=== PATIENT | female | born 1975 | race Caucasian/White ===

== ENCOUNTER 2018-07-29 09:53 | Emergency (ER) | payer BC ==
[2018-07-29] MEDS ORDERED: Sodium Chloride 0.9% 10 ML Syringe FLUSH PRN (10:10)
[2018-07-29] MEDS ORDERED: Aspirin 81 MG Tab.EC PO ONE (10:10)
[2018-07-29] MEDS ORDERED: Nitroglycerin 2% Oint 1 GM UD Packet TOP ONE (10:10)
[2018-07-29] MEDS ORDERED: Aspirin 81 MG Tab.Chew PO ONE ×2 (10:11)
[2018-07-29] MEDS ORDERED: Aspirin 81 MG Tab.Chew PO STA (10:12)
--- NOTE | 2018-07-29 10:14 | EDM.PDOC ---
ED HPI GENERAL MEDICAL PROBLEM - General Stated Complaint: CHEST PAIN Time Seen by Provider: 07/29/18 09:53 Source of Information: Reports: Patient, Family History Limitations: Reports: No Limitations - History of Present Illness INITIAL COMMENTS - FREE TEXT/NARRATIVE: 43 y.o.w.f came to the ed due to left upper chest pain with movement to the right side. Minimal pain at rest. No trauma, no diaphoresis, no sob, no N/V/D no H/O CAD. Pt quit tobacco use 7 months ago. No other acute medical issue. BP 124/58 RR 21 Pulse ox 100% on RA Pulse 71 Temp 36.6 Onset Date: 07/29/18 Onset Time: 06:00 Duration: Hour(s):, Intermittent Location: Reports: Chest Quality: Reports: Dull, Stabbing Severity: Moderate Improves with: Reports: Rest, Other Worsens with: Reports: Movement Context: Reports: Other Associated Symptoms: Reports: Chest Pain (at rest 3/10 with movement 8/10, no diaphorsis) Left chest Pain Score (Numeric/FACES): 10 - Related Data Allergies Allergy/AdvReac Type Severity Reaction Status Date / Time No Known Allergies Allergy Verified 07/29/18 10:59 Home Meds: Home Meds Acetaminophen/HYDROcodone [Villanova 325-5 MG] 1 tab PO BEDTIME PRN #3 tablet [Rx] Levothyroxine 200 mcg PO ACBREAKFAST 07/29/18 [History] ED ROS GENERAL - Review of Systems Review Of Systems: See Below Constitutional: Reports: No Symptoms HEENT: Reports: No Symptoms Respiratory: Reports: No Symptoms Cardiovascular: Reports: Chest Pain Endocrine: Reports: No Symptoms GI/Abdominal: Reports: Abdominal Pain (epigastric) : Reports: No Symptoms Musculoskeletal: Reports: No Symptoms Skin: Reports: No Symptoms Neurological: Reports: No Symptoms Psychiatric: Reports: No Symptoms Hematologic/Lymphatic: Reports: No Symptoms Immunologic: Reports: No Symptoms ED EXAM, GENERAL - Physical Exam Exam: See Below Exam Limited By: No Limitations General Appearance: Alert, WD/WN, Mild Distress, Moderate Distress, Obese (mobid ) Eye Exam: Bilateral Eye: Normal Inspection Ears: Normal External Exam, Normal Canal Ear Exam: Bilateral Ear: Auricle Normal Nose: Normal Inspection, Normal Mucosa, No Blood Throat/Mouth: Normal Inspection, Normal Lips, Normal Voice, No Airway Compromise Head: Atraumatic, Normocephalic Neck: Normal Inspection, Supple, Non-Tender, Full Range of Motion Respiratory/Chest: No Respiratory Distress, Lungs Clear, Normal Breath Sounds, No Accessory Muscle Use, Chest Non-Tender Cardiovascular: Normal Peripheral Pulses, Regular Rate, Rhythm, No Edema, No Gallop, No JVD, No Murmur, No Rub Peripheral Pulses: 1+: Radial (L) GI/Abdominal: Normal Bowel Sounds, Soft, Non-Tender, No Organomegaly, No Distention, No Abnormal Bruit, No Mass, Pelvis Stable (Female) Exam: Deferred Rectal (Female) Exam: Deferred Back Exam: Normal Inspection Extremities: Normal Inspection, Normal Range of Motion, Non-Tender, No Pedal Edema, Normal Capillary Refill Neurological: Alert, Oriented, CN II-XII Intact, Normal Cognition, Normal Gait, Normal Reflexes, No Motor/Sensory Deficits Psychiatric: Normal Affect, Normal Mood Skin Exam: Warm, Dry, Intact, Normal Color, No Rash Lymphatic: No Adenopathy EKG INTERPRETATION EKG Date: 07/29/18 Time: 09:55 Rhythm: NSR Rate (Beats/Min): 74 Dickinson: Normal P-Wave: Present QRS: Normal ST-T: Normal QT: Normal Comparison: NA - No Prior EKG Course - Vital Signs Text/Narrative:: 43 y.o.w.f came to the ed due to left upper chest pain with movement to the right side. Minimal pain at rest. No trauma, no diaphoresis, no sob, no N/V/D no H/O CAD. Pt quit tobacco use 7 months ago. No other acute medical issue. BP 124/58 RR 21 Pulse ox 100% on RA Pulse 71 Temp 36.6 PE: WNWD W F with pleuritic CP Imaging: CTA chest: Fixed Hiatal Hernia, No PE as per RAD Lanb: DD juliana 0.72 TSH 0.20 BMP nl CBC nl except RBC was 5.22 Troponin was 0.017 UA was ne Imaging: Angio CT: No PE, Fixed hiatal hernia Impression: fixed hiatal hernia Tx: ASA, NTG paste MS Reexam: Improved to 1-06/28 on D/C Plan: D/C with instructions Last Recorded V/S: Last Vital Signs Temp 36.3 C 07/29/18 10:00 Pulse 76 07/29/18 13:00 Resp 18 07/29/18 13:00 BP 112/70 07/29/18 13:00 Pulse Ox 99 07/29/18 13:00 - Orders/Labs/Meds Labs: Laboratory Tests 07/29/18 07/29/18 07/29/18 Range/Units 09:45 10:22 10:22 WBC 6.6 (4.5-12.0) X10-3/uL RBC 5.22 H (3.23-5.20) x10(6)uL Hgb 13.8 (11.5-15.5) g/dL Hct 42.2 (30.0-51.3) % MCV 80.9 (80-96) fL MCH 26.5 L (27.7-33.6) pg MCHC 32.7 (32.2-35.4) g/dL RDW 12.8 (11.5-15.5) % Plt Count 267 (125-369) X10(3)uL MPV 9.0 (7.4-10.4) fL Neut % (Auto) 55.3 (46-82) % Lymph % (Auto) 33.4 (13-37) % Wheeler % (Auto) 7.0 (4-12) % Eos % (Auto) 3 (1.0-5.0) % Baso % (Auto) 1 (0-2) % Neut # (Auto) 3.6 (1.6-8.3) # Lymph # (Auto) 2.2 (0.6-5.0) # Wheeler # (Auto) 0.5 (0.0-1.3) # Eos # (Auto) 0.2 (0.0-0.8) # Baso # (Auto) 0.1 (0.0-0.2) # PT 9.9 (8.7-11.1) INR 1.02 (0.89-1.13) D-Dimer, Quantitative 0.72 H (0.0-0.59) mg/LFEU Sodium (135-145) mmol/L Potassium (3.5-5.3) mmol/L Chloride (100-110) mmol/L Carbon Dioxide (21-32) mmol/L BUN (7-18) mg/dL Creatinine (0.55-1.02) mg/dL Est Cr Clr Drug Dosing Estimated GFR (MDRD) (>60) BUN/Creatinine Ratio (9-20) Glucose (80-116) mg/dL Calcium (8.6-10.2) mg/dL Troponin I (<0.017-0.056) ng/mL TSH, Ultra Sensitive 0.20 L (0.36-3.74) IU/mL Urine Color (YELLOW) Urine Appearance (CLEAR) Urine pH (5.0-6.5) Ur Specific [place] (1.010-1.025) Urine Protein (NEGATIVE) mg/dL Urine Glucose (UA) (NORMAL) mg/dL Urine Ketones (NEGATIVE) mg/dL Urine Occult Blood (NEGATIVE) Urine Nitrite (NEGATIVE) Urine Bilirubin (NEGATIVE) Urine Urobilinogen (NEGATIVE) mg/dL Ur Leukocyte Esterase (NEGATIVE) Urine WBC (0-5) Ur Squamous Epith Cells (NS,R,O) Urine Bacteria (NS) 07/29/18 07/29/18 07/29/18 Range/Units 10:22 10:22 11:28 WBC (4.5-12.0) X10-3/uL RBC (3.23-5.20) x10(6)uL Hgb (11.5-15.5) g/dL Hct (30.0-51.3) % MCV (80-96) fL MCH (27.7-33.6) pg MCHC (32.2-35.4) g/dL RDW (11.5-15.5) % Plt Count (125-369) X10(3)uL MPV (7.4-10.4) fL Neut % (Auto) (46-82) % Lymph % (Auto) (13-37) % Wheeler % (Auto) (4-12) % Eos % (Auto) (1.0-5.0) % Baso % (Auto) (0-2) % Neut # (Auto) (1.6-8.3) # Lymph # (Auto) (0.6-5.0) # Wheeler # (Auto) (0.0-1.3) # Eos # (Auto) (0.0-0.8) # Baso # (Auto) (0.0-0.2) # PT (8.7-11.1) INR (0.89-1.13) D-Dimer, Quantitative (0.0-0.59) mg/LFEU Sodium 140 (135-145) mmol/L Potassium 3.9 (3.5-5.3) mmol/L Chloride 105 (100-110) mmol/L Carbon Dioxide 27 (21-32) mmol/L BUN 14 (7-18) mg/dL Creatinine 0.8 (0.55-1.02) mg/dL Est Cr Clr Drug Dosing TNP Estimated GFR (MDRD) > 60 (>60) BUN/Creatinine Ratio 17.5 (9-20) Glucose 119 H (80-116) mg/dL Calcium 8.6 (8.6-10.2) mg/dL Troponin I < 0.017 L (<0.017-0.056) ng/mL TSH, Ultra Sensitive (0.36-3.74) IU/mL Urine Color Yellow (YELLOW) Urine Appearance Clear (CLEAR) Urine pH 6.0 (5.0-6.5) Ur Specific [place] 1.020 (1.010-1.025) Urine Protein Negative (NEGATIVE) mg/dL Urine Glucose (UA) Normal (NORMAL) mg/dL Urine Ketones Negative (NEGATIVE) mg/dL Urine Occult Blood Negative (NEGATIVE) Urine Nitrite Negative (NEGATIVE) Urine Bilirubin Negative (NEGATIVE) Urine Urobilinogen Normal (NEGATIVE) mg/dL Ur Leukocyte Esterase Negative (NEGATIVE) Urine WBC 0-5 (0-5) Ur Squamous Epith Cells Few H (NS,R,O) Urine Bacteria Few H (NS) Meds: Medications Discontinued Medications Generic Name Dose Route Start Last Admin Trade Name Freq PRN Reason Stop Dose Admin Aspirin 81 mg 07/29/18 10:10 07/29/18 10:20 Halfprin PO 07/29/18 10:11 Not Given ONETIME ONE Aspirin 81 mg 07/29/18 10:11 07/29/18 10:21 Aspirin PO 07/29/18 10:12 81 mg ONETIME ONE Administration Aspirin 162 mg 07/29/18 10:12 07/29/18 10:21 Aspirin PO 07/29/18 10:13 162 mg ONETIME STA Administration Aspirin 81 mg 07/29/18 10:11 07/29/18 10:21 Aspirin PO 07/29/18 10:12 81 mg ONETIME ONE Administration Sodium Chloride 1,000 mls @ 125 mls/hr 07/29/18 10:15 07/29/18 10:25 Normal Saline IV 125 mls/hr ASDIRECTED GAURAV Administration Iopamidol 100 ml 07/29/18 11:20 07/29/18 11:39 Isovue-370 (76%) IV 07/29/18 11:21 88 ml ONETIME ONE Administration Morphine Sulfate 1 mg 07/29/18 11:09 07/29/18 11:22 Morphine IVPUSH 07/29/18 11:10 1 mg ONETIME ONE Administration Nitroglycerin 1 gm 07/29/18 10:10 07/29/18 10:19 Nitro-Bid 2% TOP 07/29/18 10:11 1 gm ONETIME ONE Administration Sodium Chloride 10 ml 07/29/18 10:10 07/29/18 10:15 Saline Flush FLUSH 10 ml ASDIRECTED PRN Administration Keep Vein Open Departure - Departure Time of Disposition: 13:02 Disposition: Home, Self-Care 01 Condition: Good Clinical Impression: Hiatal hernia, Atypical chest pain Prescriptions: Acetaminophen/HYDROcodone [Villanova 325-5 MG] 1 tab PO BEDTIME PRN #3 tablet PRN Reason: for extreme pain Instructions: Hiatal Hernia Referrals: Michelle Felipe, [employer]CHNICIAN [Primary Care Provider] - Forms: ED Department Discharge, ED Return to Work/School Form Additional Instructions: Please f/u with your PMD in order to be referred to a GI specialist, Please elevate head, take Protonix as recommended, please come back if your symptoms gte worse acutely.
[2018-07-29] MEDS ORDERED: Sodium Chloride 0.9% 1,000 ML IV SCH (10:15)
[2018-07-29] MEDS ORDERED: Morphine 2 MG/ML Syringe IVPUSH ONE (11:09)
[2018-07-29] MEDS ORDERED: Iopamidol 755 Mg/ML 100 ML Bottle IV ONE (11:20)
--- NOTE | 2018-07-29 12:02 | CR ---
INDICATION: Chest pain. CHEST: A single AP portable view of the chest was obtained upright on 07/29/18 and compared with 04/17/17, revealing the heart to be normal in size and shape. The mediastinum was unremarkable. Overlying EKG leads are noted. An active infiltrate or effusion was not identified. Evidence of exogenous obesity is noted. IMPRESSION: No acute process. MTDD
--- NOTE | 2018-07-29 13:43 | CT ---
INDICATION: Chest pain with elevated D-dimer - left mid chest pain since 1900 hours last night. COMPUTERIZED TOMOGRAPHY ANGIOGRAPHY OF THE CHEST WITH CONTRAST: Spiral 2.5 mm axial sections were obtained through the chest with sagittal and coronal reconstructions, utilizing 88 mL Isovue 370 at 3 mL/second, 07/29/18 - no comparisons. Total exam DLP = 892.82 mGy-cm. An active infiltrate or effusion was not identified with very minimal scarring at the left lower lobe. No nodular masses were identified. Calcified granuloma of tiny size is noted on axial image #69 in the middle lobe. No evidence of pulmonary emboli could be identified. The heart did not appear enlarged. No pericardial effusion was seen. No mediastinal mass was noted. Mediastinal lymphadenopathy is moderate and nonspecific. There is noted a moderate sized fixed hiatal hernia. The upper abdominal organs were unremarkable, except to note absence of the gallbladder, compatible with cholecystectomy. IMPRESSION: 1. No evidence of pulmonary embolus. 2. No acute process. 3. Moderate sized fixed hiatal hernia. Report was called to Dr. Berman at 1155 hours on 07/29/18. LAURE
== END 2018-07-29 13:28 | disposition home or self-care (01) ==
LOC: FB.ED 09:53
DX: K44.9 Diaphragmatic hernia without obstruction or gangrene (principal); E66.01 Morbid (severe) obesity due to excess calories
CPT/HCPCS: 36415; 71045; 71275; 80048; 81001; 84443; 84484; 85025; 85379; 85610; 93005; 96361; 96374; 99285-25; A9270-GY; J2270; J7030; Q9967

== ENCOUNTER 2018-08-03 07:15 | Day surgery (SDC) | payer BC ==
[2018-08-03] MEDS ORDERED: Propofol 200 MG/20 ML SDV IV ONE (07:16)
[2018-08-03] MEDS ORDERED: Lactated Ringers 1,000 ML IV SCH (07:30)
--- NOTE | 2018-08-03 09:59 | PCM.HPR ---
H & P Addendum review - H & P Addendum Review Date of Original H & P: 07/30/18 Date Reviewed: 08/03/18 Time Reviewed: 09:30 Patient was Examined: No Changes
--- NOTE | 2018-08-03 10:01 | PCM.OPNOTE ---
- General Post-Op/Procedure Note Date of Surgery/Procedure: 08/03/18 Operative Procedure(s): EGD with Bx Findings: Mild Antral Gastritis 3cm HH Pre Op Diagnosis: Epigastric Pain Post-Op Diagnosis: Same Anesthesia Technique: MAC Primary Surgeon: Gasper Matos Pathology: Dist Esoph Antrum Complications: None Condition: Good
--- NOTE | 2018-08-03 15:47 | OR ---
DATE OF OPERATION: 08/03/2018 SURGEON: Gasper Matos MD PREOPERATIVE DIAGNOSIS: Epigastric abdominal pain. POSTOPERATIVE DIAGNOSES: 1. Hiatal hernia. 2. Gastritis of the antrum. PROCEDURE: Esophagogastroduodenoscopy with biopsy. ANESTHESIA: IV sedation. PROCEDURE IN DETAIL: The patient was brought to the procedure room, where she was placed on her left side and IV sedation administered. Oral bite block was placed and the upper endoscope advanced into the esophagus under direct vision without difficulty. Vocal cords were viewed and were normal. The scope was advanced to the third portion of the duodenum. Duodenum and pylorus were normal. Antrum has 2 small superficial erosions without evidence of bleeding. These areas were biopsied. The body and fundus were normal. Retroflexion reveals a regular hiatal hernia. Squamocolumnar junction is at 37 cm from the incisors and diaphragm opening is at 40 cm from the incisors, making this a 3 cm hiatal hernia. No mucosal abnormalities were noted. The esophagus appears normal. I did take two biopsies from the distal esophagus because of her symptoms. Air was removed from the stomach and the scope withdrawn through the remaining esophagus, which appears normal. The patient tolerated the procedure well and returned to recovery in stable condition. The patient will remain on her omeprazole as she is noticing some improvement. I will follow up with her next week for review of pathology report. /[id number] DL/OLGA
== END 2018-08-03 11:07 | disposition home or self-care (01) ==
LOC: FB.SDS 07:15
PROVIDERS: ATTEND Surgery
DX: K29.50 Unspecified chronic gastritis without bleeding (principal); K21.0 Gastro-esophageal reflux disease with esophagitis; K44.9 Diaphragmatic hernia without obstruction or gangrene; F41.9 Anxiety disorder, unspecified; E03.9 Hypothyroidism, unspecified; Z79.899 Other long term (current) drug therapy
CPT/HCPCS: 81025; 88305; 88342; J2704; J7120

== ENCOUNTER 2020-07-23 17:07 | Emergency (ER) | payer BC, MEDICAID ==
[2020-07-23] MEDS ORDERED: traMADol 50 MG Tab PO ONE (17:08)
--- NOTE | 2020-07-23 17:44 | EDM.PDOC ---
ED HPI GENERAL MEDICAL PROBLEM - General Stated Complaint: R SHOULDER Time Seen by Provider: 07/23/20 17:44 Source of Information: Reports: Patient History Limitations: Reports: No Limitations - History of Present Illness INITIAL COMMENTS - FREE TEXT/NARRATIVE: 45-year-old female who reports she has had pain in her right shoulder for about the past 2 years. It is a nagging pain that is worse with any kind of movement. It is something that she has usually been able to take Tylenol or ibuprofen "get through". 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 It was a sharp, aching and throbbing pain. It was in her anterior right shoulder. It was worse with palpation and with movement. She was able to go to work on that day but she found it very difficult to move her right arm. Today she went to work and it was 10/10 level of pain with any kind of movement and she was unable to use her right arm secondary to the pain. She came home after work and took some Tylenol and took a nap and when she awoke the pain was still a 10/10 level of pain and she decided to come to the emergency department for evaluation. She has had no direct trauma to the area. She has been using her right upper extremity frequently with repetitive type actions doing her work for some time. She does report that today she has been feeling numbness and tingling down into her right hand and sometimes it seems to go up into her right lateral neck. She is having no problem gripping or using her right hand and she has no pain in her arm except in the anterior right shoulder. There is no redness or swelling noted in this area. She has had no fever. No chest pain. No shortness of breath. No nausea or vomiting. There are no other associated signs or symptoms. There are no other modifying factors. 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 CUTTER: Reports: Acetaminophen Right Shoulder Pain Score (Numeric/FACES): 9 - Related Data Allergies Allergy/AdvReac Type Severity Reaction Status Date / Time No Known Allergies Allergy Verified 07/23/20 18:10 Home Meds: Home Meds Levothyroxine 200 mcg PO ACBREAKFAST 07/29/18 [History] Ibuprofen 800 mg PO ASDIRECTED 08/03/18 [History] methylPREDNISolone [Medrol Dose Pack] 4 mg PO ASDIRECTED #1 dospk 07/23/20 [Rx] Past Medical History HEENT History: Reports: Impaired Vision Gastrointestinal History: Reports: GERD, Hiatal Hernia 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 History: AB III Musculoskeletal History: Reports: Back Pain, Chronic Psychiatric History: Reports: Anxiety, Depression Endocrine/Metabolic History: Reports: Hypothyroidism, Obesity/BMI 30+ - Infectious Disease History Infectious Disease History: Reports: Chicken Pox - Past Surgical History HEENT Surgical History: Reports: Tonsillectomy GI Surgical History: Reports: Cholecystectomy, EGD Female Surgical History: Reports: D&C Social & Family History - Tobacco Use Tobacco Use Status *Q: Current Every Day Tobacco User - Caffeine Use Caffeine Use: Reports: Coffee - Alcohol Use Alcohol Use History: No - Living Situation & Occupation Occupation: Employed (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[employer]) ED ROS GENERAL - Review of Systems Review Of Systems: See Below Constitutional: Reports: No Symptoms HEENT: Reports: No Symptoms Respiratory: Reports: No Symptoms Cardiovascular: Reports: No Symptoms Endocrine: Reports: No Symptoms GI/Abdominal: Reports: No Symptoms : Reports: No Symptoms Musculoskeletal: Reports: Shoulder Pain (Right anterior shoulder pain.) Skin: Reports: No Symptoms Neurological: Reports: Tingling (Some tingling in the thumb and second and third fingers of her right hand.) Psychiatric: Reports: No Symptoms Hematologic/Lymphatic: Reports: No Symptoms Immunologic: Reports: No Symptoms ED EXAM, GENERAL - Physical Exam Exam: See Below Exam Limited By: No Limitations General Appearance: Alert, WD/WN, Mild Distress (Appears in some pain. She is nontoxic.) Eye Exam: Bilateral Eye: EOMI, Normal Inspection (Sclera are anicteric) Ears: Normal External Exam, Hearing Grossly Normal Ear Exam: Bilateral Ear: Auricle Normal Nose: Normal Inspection, Normal Mucosa, No Blood Throat/Mouth: Normal Inspection, Normal Oropharynx, Normal Voice, No Airway Compromise Head: Atraumatic, Normocephalic Neck: Normal Inspection, Supple, Non-Tender, Full Range of Motion Respiratory/Chest: No Respiratory Distress, Lungs Clear, Normal Breath Sounds, No Accessory Muscle Use, Chest Non-Tender Cardiovascular: Normal Peripheral Pulses, Regular Rate, Rhythm, No Murmur Peripheral Pulses: 2+: Radial (L), Radial (R) GI/Abdominal: Normal Bowel Sounds, Soft, Non-Tender Back Exam: Normal Inspection Extremities: Normal Inspection, No Pedal Edema, Normal Capillary Refill, Limited Range of Motion (Of right shoulder secondary to pain), Other (Tender to palpation over the right anterior shoulder/subacromial bursal area.) Neurological: Alert, Oriented, CN II-XII Intact, Normal Cognition, No Motor/Sensory Deficits Psychiatric: Normal Affect Skin Exam: Warm, Dry, Intact, Normal Color, No Rash Course - Vital Signs Last Recorded V/S: Last Vital Signs Temp 36.2 C 07/23/20 18:10 Pulse 89 07/23/20 18:10 Resp 16 07/23/20 18:10 BP 107/84 07/23/20 18:10 Pulse Ox 100 07/23/20 18:10 - Orders/Labs/Meds Meds: Medications Discontinued Medications Generic Name Dose Route Start Last Admin Trade Name Eufemia PRN Reason Stop Dose Admin Prednisone 60 mg 07/23/20 18:32 07/23/20 18:46 Prednisone 20 Mg Tab PO 07/23/20 18:33 60 mg ONETIME ONE Administration - Re-Assessments/Exams Free Text/Narrative Re-Assessment/Exam: 07/23/20 18:25: Patient with pain in her right anterior shoulder not related to trauma. It appears to be either a bursitis or a rotator cuff injury that is exacerbated by recent overuse. I will have the patient take Tylenol and ibuprofen as needed for pain. We will also apply a sling for comfort and support. I have told her to do range of motion with her right shoulder but did not do any strenuous or repetitive work with her right arm for now. I will also give her a take-home pack of tramadol (#4 tablets) and I will send a prescription for a Medrol Dosepak. She is to follow-up with her primary provider this coming week as she may need orthopedic referral. I will give her a note for work that she will not be able to use her right upper extremity until cleared by her doctor. Departure - Departure Time of Disposition: 18:40 Disposition: Home, Self-Care 01 Condition: Good (Stable.) Clinical Impression: Right anterior shoulder pain, Bursitis of right shoulder - Discharge Information Prescriptions: methylPREDNISolone [Medrol Dose Pack] 4 mg PO ASDIRECTED #1 dospk Instructions: Shoulder Pain, [id number], Pain Medicine Instructions, [id number] Referrals: PCP,None [Primary Care Provider] - Forms: ED Department Discharge, ED Return to Work/School Form Additional Instructions: You appear to have either a bursitis of your right shoulder or possibly a rotator cuff injury to your right shoulder. He will need to follow-up with your primary provider this coming week as you probably will need to be referred to an outcomes specialist. You can take Tylenol and ibuprofen for pain as needed. I am also placing you on a medication called Medrol, a steroid and an anti- inflammatory medication. You should start taking this medication tomorrow. You can also take the tramadol and I gave you moderate to severe pain. Use the sling for comfort and support. You should do gentle range of motion with your right shoulder but avoid any strenuous use with your right arm until cleared by your doctor. I have given you a note for work with these restrictions. Back to the emergency department for, redness in the area of your shoulder, trouble breathing, chest pain or any other concerning signs or symptoms. Sepsis Event Note (ED) - Focused Exam Vital Signs: Vital Signs Temp Pulse Resp BP Pulse Ox 07/23/20 18:10 36.2 C 89 16 107/84 100
[2020-07-23] MEDS: predniSONE 20 MG Tab PO ONE (18:46)
== END 2020-07-23 18:56 | disposition home or self-care (01) ==
LOC: FB.ED 17:07
DX: M75.51 Bursitis of right shoulder (principal); E03.9 Hypothyroidism, unspecified; E66.9 Obesity, unspecified; Z68.29 Body mass index [BMI] 29.0-29.9, adult; Z72.0 Tobacco use
CPT/HCPCS: 99283; A9270; J7512

== ENCOUNTER 2022-03-08 05:25 | Emergency (ER) | payer SELFPAY ==
[2022-03-08] MEDS ORDERED: Sodium Chloride 0.9% 10 ML Syringe FLUSH PRN (06:07)
[2022-03-08] MEDS ORDERED: Aspirin 81 MG Tab.Chew PO ONE (06:07)
[2022-03-08 06:09] LABS: ESTIMATED GFR 91 mL/min (>60)
[2022-03-08] MEDS ORDERED: Nitroglycerin 0.4 MG Tab.SL SL PRN (06:21)
[2022-03-08] MEDS ORDERED: Sodium Chloride 0.9% 1,000 ML IV SCH (06:30)
[2022-03-08] MEDS ORDERED: Morphine 4 MG/ML VIAL IVPUSH ONE (06:41)
[2022-03-08] MEDS ORDERED: Ondansetron 4 MG/2 ML SDV IVPUSH ONE (06:45)
[2022-03-08] MEDS ORDERED: Iopamidol 755 Mg/ML 75 ML Bottle IV ONE (07:03)
[2022-03-08] MEDS ORDERED: Ketorolac 30 MG/ML SDV IVPUSH ONE (07:22)
[2022-03-08] MEDS ORDERED: HYDROmorphone 2 MG/ML SDV IVPUSH ONE (08:05)
[2022-03-08] MEDS ORDERED: Ketorolac 30 MG/ML SDV ONE (09:27)
== END 2022-03-08 09:46 | disposition home or self-care (01) ==
LOC: FB.ED 05:25
DX: R07.81 Pleurodynia (principal); E03.9 Hypothyroidism, unspecified; K21.9 Gastro-esophageal reflux disease without esophagitis; E66.9 Obesity, unspecified; F17.210 Nicotine dependence, cigarettes, uncomplicated; Z68.31 Body mass index [BMI] 31.0-31.9, adult; Z79.84 Long term (current) use of oral hypoglycemic drugs; Z79.899 Other long term (current) drug therapy; Z86.16 Personal history of COVID-19
CPT/HCPCS: 36415; 71045; 71275; 80053; 83735; 84484; 85025; 85379; 93005; 96361; 96374; 96375; 99285-25; A9270-GY; J1170; J1885; J2270; J2405; J3490; J7030; Q9967

== ENCOUNTER 2024-03-28 02:15 | Emergency (ER) | payer SELFPAY ==
[2024-03-28] MEDS ORDERED: Naproxen 250 MG Tab PO ONE (02:16)
[2024-03-28] MEDS: Ketorolac 30 MG/ML SDV IM ONE (02:45)
== END 2024-03-28 03:36 | disposition home or self-care (01) ==
LOC: FB.ED 02:15
DX: M25.512 Pain in left shoulder (principal); E66.9 Obesity, unspecified; E03.9 Hypothyroidism, unspecified; Z79.84 Long term (current) use of oral hypoglycemic drugs; Z79.890 Hormone replacement therapy; Z79.899 Other long term (current) drug therapy; Z86.16 Personal history of COVID-19; Z90.49 Acquired absence of other specified parts of digestive tract; Z68.31 Body mass index [BMI] 31.0-31.9, adult
CPT/HCPCS: 73030-LT; 93010; 96372; 99283; A9270-GY; J1885

== ENCOUNTER 2024-06-18 22:16 | Emergency (ER) | payer MEDICAID ==
[2024-06-18] MEDS: Acetaminophen/oxyCODONE 325-5 MG Tab PO STA (22:44)
[2024-06-18] MEDS: Ketorolac 30 MG/ML SDV IM ONE (22:45)
== END 2024-06-18 23:32 | disposition home or self-care (01) ==
LOC: FB.ED 22:16
DX: M25.512 Pain in left shoulder (principal); E03.9 Hypothyroidism, unspecified; E66.9 Obesity, unspecified; F17.210 Nicotine dependence, cigarettes, uncomplicated; Z68.31 Body mass index [BMI] 31.0-31.9, adult; Z86.16 Personal history of COVID-19; Z90.49 Acquired absence of other specified parts of digestive tract; Z79.84 Long term (current) use of oral hypoglycemic drugs; Z79.890 Hormone replacement therapy; Z79.899 Other long term (current) drug therapy
CPT/HCPCS: 96372; 99283; A9270-GY; J1885

== ENCOUNTER 2024-09-23 12:39 | Emergency (ER) | payer MEDICAID ==
[2024-09-23] MEDS: Ketorolac 30 MG/ML SDV IM ONE (13:24)
== END 2024-09-23 14:04 | disposition home or self-care (01) ==
LOC: FB.ED 12:39
DX: S43.402A Unspecified sprain of left shoulder joint, initial encounter (principal); E03.9 Hypothyroidism, unspecified; F17.200 Nicotine dependence, unspecified, uncomplicated; Z86.16 Personal history of COVID-19; Z90.49 Acquired absence of other specified parts of digestive tract; Z79.84 Long term (current) use of oral hypoglycemic drugs; Z79.890 Hormone replacement therapy; Z79.899 Other long term (current) drug therapy; X50.0XXA Overexertion from strenuous movement or load, initial encounter
CPT/HCPCS: 73030-LT; 96372; 99283; J1885